=== PATIENT | female | born 1970 | race Caucasian/White ===

== ENCOUNTER 2017-10-26 17:08 | Emergency (ER) | payer SELFPAY ==
[~2017-10-26] VITALS: Ht 160 cm; Wt 79.4 kg
[2017-10-26] MEDS ORDERED: KETOROLAC TROMETHAMINE 60 MG/2 ML VIAL IM ONE (18:00)
--- NOTE | 2017-10-26 18:39 | Diagnostic Imaging Report ---
Examination: CT BRAIN WO History:Dizziness, fall Comparison studies:None Technique: Axial images were obtained from the skull base to the vertex. Coronal and sagittal images reconstructed from the axial data. Intravenous contrast: None Findings: Scalp: No abnormalities. Bones: No fractures, blastic or lytic lesions. Brain sulci: Mild prominence of sulci in the bilateral frontal lobes and frontoparietal regions near the vertex. Ventricles: Normal in size and configuration. No hydrocephalus. Extra-axial space: No abnormalities. Parenchyma: No abnormal densities. No masses, hemorrhage, acute or chronic vascular insults. Sellar/suprasellar region: No abnormalities. Craniocervical junction: Patent foramen magnum. No Chiari one malformation. Impression: 1. No acute intracranial abnormalities. 2. Mild cerebral volume loss, advanced for patient's given age. A preliminary report was given by neuroradiology fellow Dr. Lazo at 6:35 PM on 10/26/2017. I have reviewed the images and agree with the findings in the preliminary report. Signed by: Dr. Mackenzie Rivera M.D. on 10/26/2017 9:58 PM
--- NOTE | 2017-10-26 19:13 | Diagnostic Imaging Report ---
EXAMINATION: Left shoulder series. CLINICAL HISTORY: Dizziness, shoulder pain. COMPARISON: None. . Discussion: The osseous structures are intact without evidence of acute, displaced fracture or dislocation. No osteolytic or osteoblastic lesions. There is no evidence of a.c. separation. Mild degenerative changes of the acromioclavicular joint. Glenohumeral joint is unremarkable. The soft tissues are normal. IMPRESSION: 1. No acute abnormalities. Signed by: Dr. Cale Brush M.D. on 10/26/2017 7:09 PM
--- NOTE | 2017-10-26 19:17 | Diagnostic Imaging Report ---
EXAMINATION: Left Hip Films CLINICAL HISTORY:Left hip pain, status post fall COMPARISON: None. DISCUSSION: The bones are well-mineralized. No acute, displaced fractures or dislocations. No lytic or blastic lesions. Mild degenerative changes in bilateral hip joints. Nonobstructive bowel gas pattern. Multiple pelvic phleboliths are noted. IMPRESSION: 1. No acute bony abnormalities. Signed by: Dr. Cale Brush M.D. on 10/26/2017 7:14 PM
--- NOTE | 2017-10-26 19:41 | Diagnostic Imaging Report ---
EXAMINATION: Lumbar spine series. CLINICAL HISTORY: Status post fall, back pain COMPARISON: None. DISCUSSION: 3 views of the lumbar spine are submitted for interpretation. Five nonrib-bearing lumbar type vertebral bodies are identified. No acute, displaced fractures or dislocation. No significant spondylolisthesis. Intervertebral disk spaces are preserved. Vertebral body heights are preserved. Sacroiliac joints are unremarkable. No obstructive bowel gas pattern. IMPRESSION: 1. Essentially unremarkable lumbosacral spine series. The staff physician below has personally reviewed this exam on the date of dictation. Signed by: Dr. Cale Brush M.D. on 10/26/2017 7:37 PM
[2017-10-26] MEDS ORDERED: MECLIZINE HCL 12.5 MG TAB PO ONE (20:30)
[2017-10-26] MEDS ORDERED: HYDROCODONE/APAP 5MG-325MG TAB PO ONE (20:30)
== END 2017-10-26 22:21 | disposition home or self-care (01) ==
LOC: ER 17:08
DX: R42 Dizziness and giddiness (principal); R51 Headache; R11.2 Nausea with vomiting, unspecified; S40.012A Contusion of left shoulder, initial encounter; S70.02XA Contusion of left hip, initial encounter; W18.30XA Fall on same level, unspecified, initial encounter
CPT/HCPCS: 70450; 72100; 73030; 73502; 99283; J1885